=== PATIENT | female | born 1985 | race African-American/Black ===

== ENCOUNTER 2022-02-01 12:40 | Emergency (ER) | payer MEDICAID ==
[~2022-02-01] VITALS: Ht 165.1 cm; Wt 84.0 kg
[2022-02-01 13:09] VITALS: BP 148/80
[2022-02-01] MEDS ORDERED: ACETAMINOPHEN 325MG TABLET PO STA (15:09)
[2022-02-01] MEDS ORDERED: NAPR-681 PO (15:41)
[2022-02-01 18:13] LABS: UCG SCREEN NEGATIVE
== END 2022-02-01 16:24 | disposition left against medical advice (07) ==
LOC: ER 13:18
DX: S00.93XA Contusion of unspecified part of head, initial encounter (principal); T76.91XA Unspecified adult maltreatment, suspected, initial encounter
CPT/HCPCS: 81025; 99283